=== PATIENT | female | born 1990 | race Hispanic/Latino ===

== ENCOUNTER 2017-04-14 18:44 | Inpatient (IN) | payer MEDICAID ==
[~2017-04-14] VITALS: Ht 154.9 cm; Wt 79.8 kg
[2017-04-14 19:09] LABS: APPEARANCE,URINE Turbid (CLEAR); BILIRUBIN,URINE Negative (NEGATIVE); COLOR,URINE Yellow (YELLOW); GLUCOSE, URINE (UA) Negative (NEGATIVE); KETONES,URINE 40 mg/dL (NEGATIVE); LEUKOCYTE ESTERASE ,URINE Small (NEGATIVE); NITRATE,URINE Negative (NEGATIVE); OCCULT BLOOD,URINE Negative (NEGATIVE); PH,URINE 7.5 (5.0-8.0); PROTEIN,URINE Negative (NEGATIVE)
[2017-04-14 19:15] LABS: HCG,QUAL RESULT POSITIVE (NEGATIVE)
[2017-04-14 19:30] LABS: AMORPHOUS SEDIMENT,UR Moderate /LPF (None Seen); BACTERIA,URINE Few /HPF (None Seen); RBC,URINE None Seen /HPF (0-1)
[2017-04-14] MEDS ORDERED: BUPIVACAINE/PF 0.5% 30ML VIAL ONE (21:52)
[2017-04-14] MEDS ORDERED: SUCCINYLCHOLINE 200MG/10ML SYR ONE (22:08)
[2017-04-14 22:09] LABS: BASOPHILS % (AUTO) 0.1 % (0.0-5.0); EOSINOPHILS % (AUTO) 0.1 % (0.0-8.0); HEMATOCRIT 35.7 % (36-48); LYMPHOCYTES % (AUTO) 10.7 % (21.0-51.0); MEAN CORPUSCULAR HEMOGLOBIN 30.1 pg (27.0-33.0); MEAN CORPUSCULAR HGB CONC 34.6 g/dL (32.0-36.0); MEAN CORPUSCULAR VOLUME 86.8 fL (79-99); MONOCYTES % (AUTO) 4.8 % (3.0-13.0); NEUTROPHILS % (AUTO) 84.3 % (40.0-77.0); PLATELET COUNT (AUTO) 310 K/uL (130-400); RED BLOOD CELL COUNT(AUTO) 4.11 MIL/uL (4.00-5.50); RED CELL DISTRIBUTION WIDTH 13.3 % (11.0-15.5); WHITE BLOOD COUNT (AUTO) 14.7 K/uL (4.8-10.8)
[2017-04-14] MEDS ORDERED: PROPOFOL 10 MG/ML 20ML VIAL IV ONE (22:09)
[2017-04-14] MEDS ORDERED: FENTANYL CITRATE PF 50 MCG/1 ML 5ML AMP IV ONE (22:09)
[2017-04-14] MEDS ORDERED: MIDAZOLAM HCL 1 MG/ML 2ML VIAL ONE (22:09)
[2017-04-14 22:16] LABS: CREATININE 0.7 mg/dL (0.5-1.5); POTASSIUM 3.6 mmol/L (3.5-5.1)
[2017-04-14] MEDS ORDERED: CEFAZOLIN SODIUM 1 GM VIAL ONE (23:13)
[2017-04-14] MEDS ORDERED: FENTANYL CITRATE PF 50 MCG/1 ML 2ML VIAL ONE (23:17)
[2017-04-14] MEDS ORDERED: OCTYL 2-CYANOACRYLATE 1 EACH TP ONE (23:46)
[2017-04-14] MEDS ORDERED: MORPHINE SULFATE 10 MG/ML 1ML SYG ONE (23:52)
[2017-04-15] VITALS (22 sets, daily range): BP systolic 88–131; BP diastolic 44–93
[2017-04-15] MEDS ORDERED: MIDAZOLAM HCL 1 MG/ML 2ML VIAL ONE (00:07)
[2017-04-15] MEDS ORDERED: MEPERIDINE-PF 50 MG/ML SYG ONE ×2 (00:13→00:32)
[2017-04-15] MEDS ORDERED: EPINEPHRINE 1 MG/ML AMPULE ONE (00:14)
[2017-04-15] MEDS ORDERED: PROMETHAZINE HCL 25 MG/ML 1ML AMPULE IM ONE (00:33)
[2017-04-15] MEDS ORDERED: PROMETHAZINE HCL 25 MG/ML 1ML AMPULE IM PRN (02:15)
[2017-04-15] MEDS ORDERED: MEPERIDINE-PF 50 MG/ML SYG IM PRN (02:15)
[2017-04-15] MEDS ORDERED: MEPERIDINE-PF 50 MG/ML SYG IVP PRN (02:15)
[2017-04-15] MEDS: LACTATED RINGERS 1000ML 1,000 ML IV SCH ×3 (04:10→18:00)
[2017-04-15 07:03] LABS: HEMATOCRIT 32.1 % (36-48); MEAN CORPUSCULAR HEMOGLOBIN 31.1 pg (27.0-33.0); MEAN CORPUSCULAR HGB CONC 35.6 g/dL (32.0-36.0); MEAN CORPUSCULAR VOLUME 87.3 fL (79-99); PLATELET COUNT (AUTO) 247 K/uL (130-400); RED BLOOD CELL COUNT(AUTO) 3.68 MIL/uL (4.00-5.50); RED CELL DISTRIBUTION WIDTH 13.3 % (11.0-15.5); WHITE BLOOD COUNT (AUTO) 13.7 K/uL (4.8-10.8)
[2017-04-15 07:38] LABS: LYMPHOCYTES % (MANUAL) 7 % (22-44); MAN.DIFF COMMENT-IMPRESSION MANUAL DIFFERENTIAL; MONOCYTES % (MANUAL) 2 % (2-9); PLATELET MORPHOLOGY COMMENT ADEQUATE; SEGMENTED NEUTROPHILS % 91 % (40-70)
[2017-04-15] MEDS ORDERED: FLU VACC QS2017-18 36MOS UP/PF 60 MCG/0.5 ML ML IM NR (08:15)
[2017-04-15] MEDS ORDERED: CEFAZOLIN 2GM / 50 ML 50 ML IV SCH (09:00)
[2017-04-15] MEDS ORDERED: HYDROCODONE/ACETAMINOPHEN 5/325 MG TAB PO PRN (09:00)
[2017-04-15] MEDS: IBUPROFEN 600 MG TABLET PO SCH ×3 (10:11→21:02)
[2017-04-15] MEDS: CEFAZOLIN SODIUM 1 GM VIAL IVP SCH ×2 (10:12→18:00)
[2017-04-16 00:16] VITALS: BP 89/50
[2017-04-16] MEDS: IBUPROFEN 600 MG TABLET PO SCH ×2 (03:02→08:42)
[2017-04-16 03:04] VITALS: BP 84/53
[2017-04-16 08:03] VITALS: BP 96/58
[2017-04-16] MEDS ORDERED: TYL3B PO (10:38)
== END 2017-04-16 11:30 | disposition home or self-care (01) | DRG 545 ==
LOC: EDH 18:44 → WSH 18:45
PROVIDERS: ADMIT Obstetrics & Gynecology; ATTEND Obstetrics & Gynecology
PROC: 0UT14ZZ Resection of Left Ovary, Percutaneous Endoscopic Approach (ICD-10-PCS; 2017-04-14 22:20)
PROC: 0UT74ZZ Resection of Bilateral Fallopian Tubes, Percutaneous Endoscopic Approach (ICD-10-PCS; 2017-04-14 22:20)
PROC: 3E0234Z Introduction of Serum, Toxoid and Vaccine into Muscle, Percutaneous Approach (ICD-10-PCS; principal; 2017-04-15)
DX: O00.101 Right tubal pregnancy without intrauterine pregnancy (principal); D27.1 Benign neoplasm of left ovary; Z23 Encounter for immunization; O00.201 Right ovarian pregnancy without intrauterine pregnancy
CPT/HCPCS: 36415; 76801; 80048; 81001; 81025; 84702; 85025; 86850; 86900; 86901; 86922; 88305; A4218; A4344; A4351; J0171; J0330; J0690; J2175; J2250; J2270; J2550; J2704; J3010; J3490; J7030; J7120; Q2038